=== PATIENT | male | born 1980 | race Two or more races ===

== ENCOUNTER 2020-11-06 04:28 | Day surgery (SDC) | payer BC, OTHER ==
[2020-10-30 10:11] VITALS: BMI 30.5
[2020-11-06] MEDS ORDERED: LIDOCAINE HCL 2% (20ML MULTI-DOSE VIAL) ONE (09:42)
[2020-11-06] MEDS ORDERED: MIDAZOLAM HCL 2 MG/2 ML SINGLE DOSE VIAL ONE (10:02)
[2020-11-06] MEDS ORDERED: LIDOCAINE HCL 2% JELLY (5 ML/TUBE) ONE ×2 (10:08→10:39)
[2020-11-06] MEDS ORDERED: ceFAZolin SODIUM 1 GM VIAL ONE (10:14)
[2020-11-06] MEDS ORDERED: ceFAZolin SODIUM 1 GM VIAL IVPB ONE (10:15)
[2020-11-06] MEDS ORDERED: LIDOCAINE HCL 2% (50ML VIAL) NR ONE (10:18)
[2020-11-06] MEDS ORDERED: PROPOFOL 20 ML ONE ×3 (10:41)
[2020-11-06] MEDS ORDERED: EPHEDRINE SULFATE/0.9% NACL/PF 50 MG/10 ML SYRINGE NR ONE (10:42)
[2020-11-06] MEDS ORDERED: ELECTROLYTE-148 SOLN 1,000 ML IV SCH (11:15)
[2020-11-06 19:24] VITALS: TEMP 97.8
[2020-11-06 19:25] VITALS: BP 130/70; PULSE 82
== END 2020-11-06 16:00 | disposition home or self-care (01) ==
LOC: JASU-SURG 04:28
PROVIDERS: ATTEND Urology
PROC: 0VTQ0ZZ Resection of Bilateral Vas Deferens, Open Approach (ICD-10-PCS; principal; 2020-11-06 09:30)
PROC: 0VTTXZZ Resection of Prepuce, External Approach (ICD-10-PCS; 2020-11-06 09:30)
DX: Z30.2 Encounter for sterilization (principal); N47.1 Phimosis
CPT/HCPCS: 88302-TC; 88304-TC; 94760